=== PATIENT | male | born 1955 | race Native Hawaiian/Other Pacific Islander ===

== ENCOUNTER 2021-01-09 08:01 | Outpatient (CLI) | payer BC, OTHER | END 2021-01-09 21:53 | disposition home or self-care (01) | LOC: INF 08:01 | PROVIDERS: ATTEND Internal Medicine | DX: Z23 Encounter for immunization (principal) | CPT/HCPCS: 96372 ==

== ENCOUNTER 2021-02-07 08:01 | Outpatient (CLI) | payer BC, OTHER | END 2021-02-07 19:31 | disposition home or self-care (01) | LOC: INF | PROVIDERS: ATTEND Internal Medicine | DX: Z23 Encounter for immunization (principal) | CPT/HCPCS: 96372; J1953 ==